=== PATIENT | male | born 1930 | race Caucasian/White ===

== ENCOUNTER 2020-07-28 18:40 | Outpatient (CLI) | payer MEDICARE | END 2020-07-28 18:41 | disposition short-term general hospital (02) | LOC: EMS 18:40 | PROVIDERS: ATTEND Surgery | DX: R53.1 Weakness (principal); R60.0 Localized edema; R35.8 Other polyuria; R19.7 Diarrhea, unspecified | CPT/HCPCS: A0425; A0427 ==

== ENCOUNTER 2020-08-26 14:49 | Outpatient (CLI) | payer MEDICARE | END 2020-08-26 14:50 | disposition short-term general hospital (02) | LOC: EMS 14:49 | DX: R06.00 Dyspnea, unspecified (principal) | CPT/HCPCS: A0425; A0429 ==